=== PATIENT | male | born 1965 | race Caucasian/White ===

== ENCOUNTER 2019-06-11 08:51 | Outpatient (RCR) | payer BC, MEDICARE, SELFPAY | END 2019-06-18 23:59 | disposition home or self-care (01) | LOC: SPT 08:51 | PROVIDERS: Family Provider Family Medicine; PCP Family Medicine; Referring Provider Physician Assistant Surgical; Visit Provider Physician Assistant Surgical | DX: M75.121 Complete rotator cuff tear or rupture of right shoulder, not specified as traumatic (principal) | CPT/HCPCS: 97110; 97162 ==

== ENCOUNTER 2019-06-19 06:00 | Outpatient (RCR) | payer BC, MEDICARE, SELFPAY | END 2019-07-17 23:59 | disposition home or self-care (01) | LOC: SPT 06:00 | PROVIDERS: Family Provider Family Medicine; PCP Family Medicine; Referring Provider Physician Assistant Surgical; Visit Provider Physician Assistant Surgical | DX: M25.511 Pain in right shoulder (principal); M25.611 Stiffness of right shoulder, not elsewhere classified; R53.1 Weakness; M75.101 Unspecified rotator cuff tear or rupture of right shoulder, not specified as traumatic | CPT/HCPCS: 97110 ==

== ENCOUNTER 2019-07-18 06:00 | Outpatient (RCR) | payer BC, MEDICARE, SELFPAY | END 2019-08-17 23:59 | disposition home or self-care (01) | LOC: SPT 06:00 | PROVIDERS: Family Provider Family Medicine; PCP Family Medicine; Referring Provider Physician Assistant Surgical; Visit Provider Physician Assistant Surgical | DX: M75.101 Unspecified rotator cuff tear or rupture of right shoulder, not specified as traumatic (principal) | CPT/HCPCS: 97110 ==

== ENCOUNTER 2019-08-18 06:00 | Outpatient (RCR) | payer BC, MEDICARE, SELFPAY | END 2019-09-16 23:59 | disposition home or self-care (01) | LOC: SPT 06:00 | PROVIDERS: Family Provider Family Medicine; PCP Family Medicine; Referring Provider Physician Assistant Surgical; Visit Provider Physician Assistant Surgical | DX: M75.121 Complete rotator cuff tear or rupture of right shoulder, not specified as traumatic (principal) | CPT/HCPCS: 97110 ==

== ENCOUNTER 2020-01-03 08:35 | Outpatient (CLI) | payer BC, MEDICARE, SELFPAY ==
--- NOTE | 2020-01-03 08:41 | US_ITS ---
WS: [id number] RIGHT UPPER QUADRANT ULTRASOUND HISTORY: ABDOMINAL PAIN COMPARISON: 11/28/2009 Liver: 18.6 cm in length. Moderately enlarged liver. Diffuse attenuation throughout the liver and the surface of the liver is irregular. No mass or bile duct dilatation. Gallbladder: Normally distended gallbladder with no stones or wall thickening. CBD: 0.3 cm Pancreas: Normal size and echogenicity. Right kidney: 11.7 cm in length. Normal echogenicity with no mass or hydronephrosis. Aorta and IVC: Unremarkable. No ascites. US/US abdomen limited [id number] IMPRESSION: 1. Normal gallbladder. 2. Moderate hepatomegaly with hepatic steatosis. Correlate for possible cirrho sis.
== END 2020-01-03 08:36 | disposition home or self-care (01) ==
LOC: US 08:36
PROVIDERS: Family Provider Family Medicine; PCP Family Medicine; Visit Provider Family Medicine
DX: R10.9 Unspecified abdominal pain (principal); R16.0 Hepatomegaly, not elsewhere classified; K76.0 Fatty (change of) liver, not elsewhere classified
CPT/HCPCS: 76705

== ENCOUNTER 2020-07-19 07:55 | Outpatient (CLI) | payer BC, MEDICARE, SELFPAY ==
--- NOTE | 2020-07-19 08:08 | XR_ITS ---
WS: [id number] CHEST 2 VIEWS HISTORY: COUGH COMPARISON: 01/21/2012 Lungs: Moderate pulmonary hyperinflation. Diffuse interstitial thickening bilaterally. Progression si nce 2012. No dense areas of consolidation or pneumonia. Cardiac size: Normal. Mediastinum/Aorta: Mild atherosclerosis aorta. Bones: Prior rotator cuff repair on the LEFT. XR/XR chest 2V* [id number] IMPRESSION: 1. Diffuse interstitial thickening with progression since 01/21/2012. Differenti al includes diffuse pneumonitis and progression of interstitial pulmonary fibro sis. 2. No focal consolidation or pneumonia.
== END 2020-07-19 07:56 | disposition home or self-care (01) ==
PROVIDERS: PCP Family Medicine; Visit Provider Family Medicine
DX: R05 Cough (principal)
CPT/HCPCS: 71046

== ENCOUNTER → 2020-08-30 08:26 | Outpatient (BNVA) | payer BC, MEDICARE, SELFPAY | PROVIDERS: PCP Family Medicine; Referring Provider Nurse Practitioner Family; Visit Provider Podiatrist Foot & Ankle Surgery | DX: M25.572 Pain in left ankle and joints of left foot (principal) | CPT/HCPCS: 73630 ==

== ENCOUNTER → 2020-10-19 08:57 | Outpatient (BNVA) | payer BC, MEDICARE, SELFPAY | PROVIDERS: PCP Family Medicine; Visit Provider Podiatrist Foot & Ankle Surgery | DX: M10.9 Gout, unspecified (principal) | CPT/HCPCS: 73630 ==

== ENCOUNTER 2021-01-25 14:10 | Outpatient (CLI) | payer BC, MEDICARE, SELFPAY | END 2021-01-25 14:11 | disposition home or self-care (01) | LOC: SPT 14:11 | PROVIDERS: PCP Family Medicine; Visit Provider Podiatrist Foot & Ankle Surgery | DX: Z46.89 Encounter for fitting and adjustment of other specified devices (principal); M72.2 Plantar fascial fibromatosis | CPT/HCPCS: 97760; L3030 ==

== ENCOUNTER 2021-09-18 14:02 | Outpatient (CLI) | payer BC, MEDICARE, SELFPAY | END 2021-09-18 14:03 | disposition home or self-care (01) | LOC: SPT 14:03 | PROVIDERS: PCP Family Medicine; Visit Provider Podiatrist Foot & Ankle Surgery | DX: Z46.89 Encounter for fitting and adjustment of other specified devices (principal); M72.2 Plantar fascial fibromatosis | CPT/HCPCS: 20550; 97760; L4397 ==

== ENCOUNTER 2021-11-27 08:23 | Outpatient (CLI) | payer BC, MEDICARE, SELFPAY ==
--- NOTE | 2021-11-27 08:41 | XR_ITS ---
WS: [id number] Right foot, 3 views, 11/27/2021 Clinical Data: R FOOT PAIN Comparison: None. Findings: No fractures or dislocations are seen. No bone destruction or erosion is noted. The joint spaces and soft tissues are normal. XR/XR foot RT min 3V* [id number] Impression: Negative right foot.
--- NOTE | 2021-11-27 08:41 | XR_ITS ---
WS: [id number] Lumbar spine, AP view, L5-S1 view, lateral view, both obliques, 11/27/2021 Clinical Data: LOW BACK PAIN Comparison: None. Findings: No compression fractures or subluxation is seen. No disc space narrowing is seen. The transverse proc esses and SI joints are normal. The oblique images show no spondylolysis. There is minimal anterior osteoarthritis L3-L5. There is ca lcification in the wall of the abdominal aorta but no aneurysm. XR/XR lumbar spine min 4V [id number] Impression: 1. Minimal osteoarthritis L3-L5. 2. Negative oblique images.
== END 2021-11-27 08:24 | disposition home or self-care (01) ==
PROVIDERS: PCP Family Medicine; Visit Provider Nurse Practitioner Family
DX: M54.50 Low back pain, unspecified (principal); M79.671 Pain in right foot; M47.816 Spondylosis without myelopathy or radiculopathy, lumbar region
CPT/HCPCS: 72110; 73630

== ENCOUNTER → 2022-02-15 07:49 | Outpatient (BNVA) | payer MEDICARE, SELFPAY | PROVIDERS: PCP Family Medicine; Visit Provider Family Medicine | DX: R53.83 Other fatigue (principal); I10 Essential (primary) hypertension; E78.5 Hyperlipidemia, unspecified; M10.9 Gout, unspecified | CPT/HCPCS: 80053; 80061; 84443; 84550; 85025 ==

== ENCOUNTER 2022-02-26 11:08 | Emergency (ER) | payer MEDICARE, SELFPAY ==
[2022-02-26 11:14] VITALS: BP 151/98; PULSE 74; RESP 18; TEMP 36.5; O2SAT 95; BMI 33.6
--- NOTE | 2022-02-26 11:20 | XRR_ITS ---
PROCEDURE INFORMATION: Exam: XR Right Hand Exam date and time: 02/26/2022 11:30 AM Age: 56 years old Clinical indication: Injury or trauma; Other: Jowl Trimmer against finger; Injury details: PT states that the lens grinder and polisher slipped. Laceration on the RT 2nd digit (index finger) posteriorly between pip and mcp joint. PT states that there is no pain and that the finger is numb; Additional info: Right index finger injury TECHNIQUE: Imaging protocol: Radiologic exam of the Right hand. Views: 3 or more views. COMPARISON: No relevant prior studies available. FINDINGS: Bones/joints: Mild distal interphalangeal arthritic changes are noted. No fracture. Soft tissues: Normal. XR/XR hand RT min 3V* [id number] IMPRESSION: No acute findings.
--- NOTE | 2022-02-26 11:27 | ED_ITS ---
HPI - Wound/Laceration General: Chief Complaint: Wound/Laceration Stated Complaint: Right hand, index finger lac Time Seen by Provider: 02/26/22 11:23 History of Present Illness: Patient is a 56-year-old male comes to the ED with laceration to right index finger. Injury occurred just prior to arrival. 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 It caused a laceration over the proximal and dorsal aspect of index finger. Bleeding was controlled with a rag. He is not up-to-date with his tetanus. He endorses having minimal pain and has full range of motion in finger. Associated symptoms: Denies chills, fever(s), nausea or vomiting Review of Systems Const: Denies: fever(s), chills or fatigue Eyes: Denies: change in vision or eye discomfort ENMT: Denies: throat pain, odynophagia, nasal discharge or nasal congestion Card: Denies: chest pain, palpitations, edema, swelling of feet/ankles, dyspnea on exertion or orthopnea Resp: Denies: dyspnea, productive cough or non-productive cough GI: Denies: abdominal pain, nausea, vomiting, diarrhea, constipation or hematochezia : Denies: flank pain, difficulty urinating, dysuria or hematuria Musc: Denies: neck pain, back pain or extremity swelling Skin/Breast: Reports: new lesions (Laceration index finger); Denies: rash Neuro: Denies: headache(s), numbness in extremities or weakness in extremities [facility] ED PFSH: Medical History Fatigue Gout Hyperlipidemia Social History Smoking and tobacco status: former smoker Physical Exam Const: COMMON NORMALS: no acute distress, patient oriented x3, healthy appearing and alert GENERAL APPEARANCE: cooperative and comfortable HENMT: COMMON NORMALS: normocephalic HEAD & SCALP: normocephalic MOUTH: Normal oral and palatal mucosa present THROAT: posterior oropharynx normal and uvula midline Neck/C-Spine: COMMON NORMALS: supple GENERAL: Yes normal visual inspection Resp: COMMON NORMALS: normal respiratory effort, No retractions, No use of accessory muscles and clear to auscultation bilaterally AUSCULTATION: clear to auscultation bilaterally Cardio: COMMON NORMALS: regular rate, regular rhythm, S1 normal heart sound present, S2 normal heart sound present, No gallops present (Cardio), No clicks present (Cardio), No murmurs present (Cardio) and Peripheral pulses 2+ throughout RATE: regular rate RHYTHM: regular rhythm HEART SOUNDS: S1 normal heart sound present and S2 normal heart sound present PERIPHERAL PULSES: Peripheral pulses 2+ throughout GI: COMMON NORMALS: Normal to inspection, nondistended, normoactive bowel raina nds present, Soft to palpation, non-tender and no masses PALPATION: Yes Soft to palpation : COMMON NORMALS: Yes no CVA tenderness BLADDER/KIDNEY EXAM: Yes no CVA tenderness Back/Pelvis: COMMON NORMALS: no CVA tenderness Extremity: NARRATIVE EXTREMITY EXAM: Right hand?index finger?proximal dorsal aspect of finger has a 2 cm linear superficial laceration present. No active bleeding seen. Full range of motion in finger and no concern for any tendon laceration noted. No nailbed or nail injury seen. Neuro: COMMON NORMALS: patient oriented x3 SENSORIUM/ORIENTATION: Yes alert GAIT: Yes Normal gait present Skin: GENERAL SKIN EXAM: dry skin Procedures Laceration Laceration 1: Site: hand (Right hand 2nd digit) Size (cm): 2 Description: linear and clean Depth: simple, single layer Local Anesthetic: lidocaine 2% Amount of anesthesia used (mL): 3 Pre-repair: irrigated extensively (With normal saline and beta iodine. Skin was cleaned with CHG swab.) Skin layer closed with: nylon Size (cm): 4-0 Number of sutures: 5 Technique: simple, interrupted Course Vital Signs: Vital signs: Vital Signs Temperature 97.7 F 02/26/22 11:14 Pulse Rate 74 02/26/22 11:14 Respiratory Rate 18 02/26/22 11:14 Blood Pressure 151/98 02/26/22 11:14 Pulse Oximetry 95 02/26/22 11:14 Oxygen Delivery Me thod 02/26/22 11:14 MDM - Wound/Laceration Medical Decision Making Patient is a 56-year-old male comes to the ED with a laceration to right hand index finger. Patient appears nontoxic in no acute distress or pain. Laceration is linear and approximately 2 cm in length. Superficial with no active bleeding. No nailbed or nail injury noted. He has full range of motion in finger and no concern for any tendon laceration. X-ray of right hand showed no acute findings. Laceration was irrigated extensively normal saline and beta iodine wash the skin was cleaned with CHG swab. Lidocaine 2% was used as local and 5 sutures were placed to close laceration. See procedure note for details. He was given an updated tetanus here in the ED. He was discharged home with prophylactic antibiotic prescription. Told to follow-up in the next 7 to 10 days to have sutures removed. He was instructed on how to care for laceration site. Patient understood and agreed with plan. Lab Data Radiology Impressions Hand X-Ray 02/26/22 11:20 IMPRESSION: No acute findings. Discharge Plan Discharge Patient Disposition: Home Clinical Impression: Finger laceration Qualifiers: Encounter type: initial encounter Finger: index finger Damage to nail status: without damage Foreign body presence: without foreign body Laterality: right Qualified Code(s): S61.210A - Laceration without foreign body of right index finger without damage to nail, initial encounter Condition: Stable Prescriptions: New cephalexin 500 mg capsule 500 mg PO Q6H 4 Days Qty: 16 0RF No Action lovastatin 20 mg tablet 20 mg PO BID (DME) Custom orthotics See Rx Instructions .Route .MEDSUPPLY Qty: 1 0RF Rx Instructions: As directed triamcinolone acetonide 0.1 % cream 1 applic topical DAILY 14 Days Qty: 15 2RF hydrocodone-acetaminophen 10-325 mg tablet 1 tab PO BID PRN (DME) Custom Molded Orthotics See Rx Instructions .Route .MEDSUPPLY Qty: 1 0RF Rx Instructions: As directed (DME) sport carbon fibert orthotic See Rx Instructions .Route .MEDSUPPLY Qty: 1 0RF Rx Instructions: As directed (DME) night splint See Rx Instructions .Route .MEDSUPPLY Qty: 1 0RF Rx Instructions: As directed trazodone 50 mg tablet 50 mg PO DAILY tizanidine 2 mg capsule 2 mg PO ONCE PRN doxycycline hyclate 100 mg capsule 100 mg PO BID 7 Days Qty: 14 0RF prednisone 20 mg tablet 20 mg PO DAILY Qty: 5 0RF allopurinol 100 mg tablet 100 mg PO DAILY Qty: 30 11RF omeprazole 40 mg capsule,delayed release(DR/EC) 40 mg PO DAILY Qty: 90 1RF Discharge Orders: Discharge ED (Routine); Ordered 02/26/22 Ordered By: Osvaldo Cunha Referrals: Spencer Devlin, [Primary Care Provider] - Discharge Diet: Regular Discharge Activity: Limit activity as instructed Patient Instructions: Finger Laceration (ED) Activity Restrictions/Additional Instructions: Take full course of antibiotics as prescribed. Keep laceration site clean and dry. No submerging finger in any water until sutures removed. Clean daily with soap and water and then apply thin layer of triple antibiotic ointment on it and cover with bandage. Watch for signs of infection such as redness, warmth, increased tenderness and puslike drainage. If you see the signs of infection return to the ED, urgent care or PCP for reevaluation. call your PCP to schedule a follow-up appointment for reevaluation and suture removal in about 7- 10 days. Continue taking all home meds. Follow discharge plans as discussed. You can return to the ED if symptoms worsen. Coding Level of Care Code ED Major General for Jack Fwvishal Exam Comprehensive
[2022-02-26] MEDS: tetanus-dipt-pertussis 0.5 mL SDV IM (11:33)
== END 2022-02-26 12:07 | disposition home or self-care (01) ==
PROVIDERS: Emergency Provider Physician Assistant; PCP Family Medicine
DX: S61.210A Laceration without foreign body of right index finger without damage to nail, initial encounter (principal); E78.5 Hyperlipidemia, unspecified; Z87.891 Personal history of nicotine dependence; W29.8XXA Contact with other powered hand tools and household machinery, initial encounter; Z23 Encounter for immunization
CPT/HCPCS: 12001; 73130; 90471; 90715; 99283

== ENCOUNTER 2022-03-19 07:05 | Outpatient (CLI) | payer MEDICARE, SELFPAY | END 2022-03-19 07:06 | disposition home or self-care (01) | LOC: RT 07:05 | PROVIDERS: PCP Family Medicine; Visit Provider Nurse Practitioner Family | DX: J42 Unspecified chronic bronchitis (principal) | CPT/HCPCS: 94060; 94726; 94729 ==

== ENCOUNTER 2022-04-09 08:53 | Emergency (ER) | payer MEDICARE, SELFPAY ==
[2022-04-09 09:00] VITALS: BP 173/86; PULSE 69; RESP 16; TEMP 36.6; O2SAT 96
--- NOTE | 2022-04-09 10:07 | ED_ITS ---
HPI - Wound/Laceration General: Chief Complaint: Wound/Laceration Stated Complaint: Need Stiches Time Seen by Provider: 04/09/22 08:59 History of Present Illness: Patient is in today for a laceration to his left palm. He reports that he cut it on a piece of vinyl today. He reports he is up-to-date on his tetanus vaccination. Associated symptoms: Denies chills or fever(s) Review of Systems Const: Denies: fever(s) or chills Card: Denies: chest pain or palpitations Resp: Denies: dyspnea Skin/Breast: Reports: other (Laceration left palm) REPLACED BY [facility] ED PFSH: Medical History Fatigue Gout Hyperlipidemia Social History Smoking and tobacco status: former smoker Physical Exam Const: COMMON NORMALS: no acute distress, patient oriented x3 and alert Resp: COMMON NORMALS: normal respiratory effort Extremity: EXTREMITY IMAGE (BACK): 1. 6 cm laceration. Clean margins approximates well. Superficial. No involvement of deeper structures. Full range of motion of hand. CSM within normal limits Neuro: COMMON NORMALS: patient oriented x3 SENSORIUM/ORIENTATION: Yes alert Procedures Laceration Left palm: Site: upper extremity (Left palm) Side (If applicable): left Size (cm): 6 Description: linear Depth: simple, single layer Local Anesthetic: lidocaine 1% Amount of anesthesia used (mL): 3 Pre-repair: wound explored, irrigated extensively and deep structures intact Skin layer closed with: other (4-0 Ethilon) Size (cm): 4-0 Number of sutures: 6 Technique: simple, interrupted Course Vital Signs: Vital signs: Vital Signs Temperature 97.9 F 04/09/22 09:00 Pulse Rate 69 04/09/22 09:00 Respiratory Rate 16 04/09/22 09:00 Blood Pressure 173/86 04/09/22 09:00 Pulse Oximetry 96 04/09/22 09:00 MDM - Wound/Laceration Medical Decision Making Patient is in for laceration to left palm. Full range of motion to hand CSM within normal limits. No apparent involvement of deeper structures including muscle or tendon. Suture repair is done after wound was cleaned and irrigated. Local anesthetic with 1% lidocaine utilized. Patient tolerated procedure well. Advised of aftercare. Placed on prophylactic antibiotic. Follow-up in 5 to 7 days for suture removal. Return to ER as needed for any new or worsening symptoms. Discharge Plan Discharge Patient Disposition: Home Clinical Impression: Laceration Condition: Stable Prescriptions: New cephalexin 500 mg capsule 500 mg PO BID 7 Days Qty: 14 0RF No Action (DME) Custom orthotics See Rx Instructions .Route .MEDSUPPLY Qty: 1 0RF Rx Instructions: As directed triamcinolone acetonide 0.1 % cream 1 applic topical DAILY 14 Days Qty: 15 2RF hydrocodone-acetaminophen 10-325 mg tablet 1 tab PO BID PRN (DME) Custom Molded Orthotics See Rx Instructions .Route .MEDSUPPLY Qty: 1 0RF Rx Instructions: As directed (DME) sport carbon fibert orthotic See Rx Instructions .Route .MEDSUPPLY Qty: 1 0RF Rx Instructions: As directed (DME) night splint See Rx Instructions .Route .MEDSUPPLY Qty: 1 0RF Rx Instructions: As directed trazodone 50 mg tablet 50 mg PO DAILY tizanidine 2 mg capsule 2 mg PO ONCE PRN doxycycline hyclate 100 mg capsule 100 mg PO BID 7 Days Qty: 14 0RF prednisone 20 mg tablet 20 mg PO DAILY Qty: 5 0RF allopurinol 100 mg tablet 100 mg PO DAILY Qty: 30 11RF omeprazole 40 mg capsule,delayed release(DR/EC) 40 mg PO DAILY Qty: 90 1RF lovastatin 20 mg tablet 20 mg PO BID Qty: 60 0RF chlorthalidone 25 mg tablet 25 mg PO DAILY Qty: 90 0RF varenicline [Chantix Starting Month Box] 0.5 mg (11)- 1 mg (42) tablets,dose pack See Rx Instructions PO BID 42 Days Qty: 53 0RF Rx Instructions: 1mg PO twice daily Discharge Orders: Discharge ED (Routine); Ordered 04/09/22 Ordered By: Vale May Referrals: Spencer Devlin DO [Primary Care Provider] - Discharge Diet: Usual diet Discharge Activity: Resume usual activity Patient Instructions: Care For Your Stitches (ED) Activity Restrictions/Additional Instructions: Take antibiotic as directed. Keep the wound clean and dry. Monitor closely for signs of infection. Sutures should be removed in 5 to 7 days. Follow-up with primary care or you can return to ER to have this done. 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
--- NOTE | 2022-04-09 10:32 | PC.NURSE ---
hand was cleaned and wrapped in gauze and coban
[2022-04-09 10:33] VITALS: BP 132/82; PULSE 78; RESP 16; O2SAT 92
== END 2022-04-09 10:38 | disposition home or self-care (01) ==
PROVIDERS: Emergency Provider Nurse Practitioner Family; PCP Family Medicine
DX: S61.412A Laceration without foreign body of left hand, initial encounter (principal); E78.5 Hyperlipidemia, unspecified; Z87.891 Personal history of nicotine dependence; W26.8XXA Contact with other sharp object(s), not elsewhere classified, initial encounter
CPT/HCPCS: 12002; 99282

== ENCOUNTER → 2022-05-02 13:51 | Outpatient (BNVA) | payer MEDICARE, SELFPAY | PROVIDERS: PCP Family Medicine; Visit Provider Internal Medicine Pulmonary Disease | DX: J42 Unspecified chronic bronchitis (principal); J98.4 Other disorders of lung; R40.0 Somnolence; R06.09 Other forms of dyspnea; M25.641 Stiffness of right hand, not elsewhere classified; M25.642 Stiffness of left hand, not elsewhere classified; Z71.6 Tobacco abuse counseling; Z87.891 Personal history of nicotine dependence | CPT/HCPCS: 99204 ==

== ENCOUNTER 2022-05-08 13:00 | Outpatient (CLI) | payer MEDICARE, SELFPAY | END 2022-05-08 13:01 | disposition home or self-care (01) | LOC: SLEEP 05-09 08:24 | PROVIDERS: PCP Family Medicine; Visit Provider Nurse Practitioner Family | DX: R53.83 Other fatigue (principal); R40.0 Somnolence; G47.33 Obstructive sleep apnea (adult) (pediatric) | CPT/HCPCS: G0399 ==

== ENCOUNTER 2022-05-10 09:59 | Outpatient (CLI) | payer MEDICARE, SELFPAY ==
--- NOTE | 2022-05-10 10:30 | CT_ITS ---
WS: [id number] CT CHEST CT-HIGH RESOLUTION, NONCONTRAST. HISTORY: Interstitial lung disease. Technique: High-resolution chest CT is performed in inspiration, expiration, supine and prone positio abiel. All CT scans at [facility] use at least one of these dose optimization techniques: automated exposure control; mA and/or kV adjustment per patient size (includes targeted exams where dose is mat ched to clinical indication); or iterative reconstruction. DLP: 2912.36 mGy.cm COMPARISON: None. Findings: Bilateral, predominantly basilar and peripheral reticular opacifications. There is honeycom yuri in the upper and lower lung chacko but predominantly in the lower lung chacko and extending genevieve g the pleural surfaces of the upper lobes. There is traction bronchiectasis predominantly also within the lower lobes. No discrete solid mass. No pleural effusion. Honeycombing does not improve with pro ne positioning. During expiration there is mild volume loss. No significant mosaic attenuation to suggest focal areas of air trapping. Heart size is normal. No adenopathy. Mild atherosclerosis aorta. Normal size pulmonary artery. Small hiatal hernia. No adrenal mass. Increase in the thoracic kyphosis. CT/CT chest wo con [id number] Impression: 1. Moderate changes of UIP. 2. No cardiomegaly. 3. No pneumonia or mass.
== END 2022-05-10 10:00 | disposition home or self-care (01) ==
LOC: RAD 10:02
PROVIDERS: PCP Family Medicine; Visit Provider Internal Medicine Pulmonary Disease
DX: J98.4 Other disorders of lung (principal)
CPT/HCPCS: 71250

== ENCOUNTER 2022-05-13 13:58 | Outpatient (CLI) | payer MEDICARE, SELFPAY ==
--- NOTE | 2022-05-13 14:30 | USCV_ITS ---
Alfredo Reyes Age: 56 Gender: M : 1965 Exam Date: 05/13/2022 14:22 Ordering Phys: Peterson Nagy MD Technologist: Fareed Riley Exam Location: [facility] [place] Indication: lung issues sob BP: / HR: 66 Rhythm: Sinus Technical Quality: MEASUREMENTS (Male / Female) Normal Values 2D ECHO LV Diastolic Diameter PLAX 4.8 cm 4.2 - 5.9 / 3.9 - 5.3 cm LV Systolic Diameter PLAX 3.0 cm IVS Diastolic Thickness 1.4 cm 0.6 - 1.0 / 0.6 - 0.9 cm IVS Systolic Thickness 1.5 cm LVPW Diastolic Thickness 1.3 cm 0.6 - 1.0 / 0.6 - 0.9 cm LVPW Systolic Thickness 1.6 cm LVOT Diameter 3.6 cm LV Ejection Fraction 2D Teich 67.0 % LV Ejection Fraction MOD 2C 59.3 % LV Ejection Fraction 2C AL 60.5 % LA Diameter 4.0 cm Aorta at Sinotubular Diameter 3.6 cm IVC Diameter 2.0 cm M-MODE Aortic Annulus Diameter 4.2 cm LA Ao Ratio MM 0.9 DOPPLER AV Peak Velocity 137.0 cm/s LVOT Peak Velocity 93.0 cm/s AV Area Cont Eq vti 7.1 cm squared AV Area Cont Eq pk 7.0 cm squared MV Area PHT 5.0 cm squared Mitral E to A Ratio 1.0 MV E' Velocity 42.0 cm/s Mitral E to MV E' Ratio 6.9 Mitral E to LV E' Lateral Ratio 5.8 Mitral E to LV E' Septal Ratio 8.6 TR Peak Velocity 143.3 cm/s TR Peak Gradient 8.2 mmHg TV Peak E Velocity 92.0 cm/s Right Atrial Pressure 3.0 mmHg Pulmonary Artery Systolic Pressu 11.2 mmHg RV Acceleration Time 0.1 s FINDINGS Left Ventricle Left ventricle is normal in size. LV systolic function normal with EF of 55 to 60%. No regional wall motion abnormalities are seen. Grade 1 disatolic dysfunction Right Ventricle Normal in size and function Right Atrium Normal in size Left Atrium Normal in size Mitral Valve Grossly normal Aortic Valve Grossly normal. No significant stenosis or regurgitation. Tricuspid Valve Trace tricuspid regurgitation. Pulmonary artery systolic pressure is normal Pulmonic Valve Not well visualized Pericardium Not well visualized Aorta Mildly dilated ascending aorta IVC Appears to be normal CONCLUSIONS Technically limited quality echocardiogram because of poor ultrasonic windows. LV systolic function is normal with EF of 55 to 60%. Grade 1 diastolic dysfunction. Mild tricuspid regurgitation. Mildly dilated ascending aorta. No comparison studies are available Arron Ulrich MD (Electronically Signed) Final Date: 19 May 2022 16:32 S
== END 2022-05-13 13:59 | disposition home or self-care (01) ==
LOC: RAD 14:00
PROVIDERS: PCP Family Medicine; Visit Provider Internal Medicine Pulmonary Disease
DX: R22.43 Localized swelling, mass and lump, lower limb, bilateral (principal); R06.02 Shortness of breath; I07.1 Rheumatic tricuspid insufficiency
CPT/HCPCS: 93306

== ENCOUNTER 2022-05-14 12:02 | Outpatient (CLI) | payer MEDICARE, SELFPAY ==
[2022-05-14 13:02] LABS: C Reactive Protein 10.6 mg/L (0.0-4.9)
[2022-05-14 13:09] LABS: Erythrocyte Sedimentation Rate 7 mm/hr (0-10)
[2022-05-15 10:59] LABS: Anti-Double Strand DNA AB 3 IU/mL; Jo-1 Antibody <1.0 NEG AI (<1.0 NEG); SM/RNP Antibodies <1.0 NEG AI (<1.0 NEG); SS-B/LA IGG <1.0 NEG AI (<1.0 NEG); Scleroderma Ab(Scl-70) Ab <1.0 NEG AI (<1.0 NEG); Ss-A/Ro Igg <1.0 NEG AI (<1.0 NEG)
[2022-05-21 20:44] LABS: Myositis EJ AB <11 SI (<11); Myositis JO-1 AB <11 SI (<11); Myositis MDA-5 AB <11 SI (<11); Myositis MI-2 Alpha AB <11 SI (<11); Myositis MI-2 Beta AB <11 SI (<11); Myositis NXP-2AB <11 SI (<11); Myositis OJ AB <11 SI (<11); Myositis PL-12 AB <11 SI (<11); Myositis PL-7 AB <11 SI (<11); Myositis SRP AB <11 SI (<11); Myositis TIF-1y AB <11 SI (<11)
== END 2022-05-14 12:03 | disposition home or self-care (01) ==
LOC: LAB 12:04
PROVIDERS: PCP Family Medicine; Visit Provider Internal Medicine Pulmonary Disease
DX: J84.9 Interstitial pulmonary disease, unspecified (principal); J98.4 Other disorders of lung
CPT/HCPCS: 36415; 84182; 85651; 86140; 86225; 86235

== ENCOUNTER 2022-05-29 07:09 | Outpatient (CLI) | payer MEDICARE, SELFPAY ==
--- NOTE | 2022-05-29 07:38 | XR_ITS ---
WS: [id number] XR chest 2V* [id number] REASON FOR EXAM: Rule out pneumonia FINDINGS: Moderate tortuosity of the thoracic aorta with normal heart size. Calcified granulomatous disease in both hemithoraces. Extensive coarse reticular interstitial density in both lungs predominating in the lung periphery and subpleural areas. Multiple areas of increased lucency more centrally in the lungs. The chest demonstrates no significant interval change compared to 07/19/2020. XR/XR chest 2V* [id number] IMPRESSION: Severe chronic interstitial lung disease with multiple cystic areas in both musa gs. No acute abnormality is identified.
== END 2022-05-29 07:10 | disposition home or self-care (01) ==
PROVIDERS: PCP Family Medicine; Visit Provider Internal Medicine Pulmonary Disease
DX: J20.9 Acute bronchitis, unspecified (principal); J84.9 Interstitial pulmonary disease, unspecified
CPT/HCPCS: 71046; 94618

== ENCOUNTER 2022-07-11 10:39 | Outpatient (CLI) | payer MEDICARE, SELFPAY ==
--- NOTE | 2022-07-11 10:49 | XR_ITS ---
WS: [id number] Exam: XR chest 2V* [id number] Date/Time of Exam: 07/11/2022 11:05 AM Reason For Exam: POST PLEURAL BIOPSIES - RULE OUT PNEUMOTHORAX Comparison 05/29/2022. Very tiny right upper lobe pneumothorax noted estimated at 5% or less. Subcutaneous emphysema along t he right lower rib cage. Extensive chronic interstitial changes of fibrosis and honeycombing. No cons olidating infiltrates are seen. Heart size top limits normal. Prominence of the mediastinum unchanged . Bony structures are intact. Wire suture superimpose the lower C-spine. Old left clavicle fracture. Exaggerated thoracic kyphosis. XR/XR chest 2V* [id number] IMPRESSION: 1. Tiny right upper lobe pneumothorax estimated at 5% or less. Subcutaneous emp hysema along the lower right rib cage. 2. Extensive the changes of interstitial fibrosis and honeycombing. No acute in filtrates are seen. 3. Widening of the mediastinum unchanged. Heart size top limits normal.
== END 2022-07-11 10:40 | disposition home or self-care (01) ==
LOC: RAD 10:44
PROVIDERS: PCP Family Medicine; Visit Provider Internal Medicine Pulmonary Disease
DX: J84.9 Interstitial pulmonary disease, unspecified (principal); J98.4 Other disorders of lung; R06.09 Other forms of dyspnea; M25.641 Stiffness of right hand, not elsewhere classified; F17.200 Nicotine dependence, unspecified, uncomplicated; Z99.81 Dependence on supplemental oxygen; J95.811 Postprocedural pneumothorax; G47.33 Obstructive sleep apnea (adult) (pediatric)
CPT/HCPCS: 71046; 99214

== ENCOUNTER 2022-08-02 09:43 | Outpatient (CLI) | payer MEDICARE, SELFPAY ==
[2022-08-02 10:32] LABS: Erythrocyte Sedimentation Rate 16 mm/hr (0-10)
[2022-08-02 10:35] LABS: Alanine Aminotransferase 23 U/L (0-41); Albumin Level 4.1 g/dL (3.5-5.2); Alkaline Phosphatase 111 U/L (40-130); Blood Urea Nitrogen 13 mg/dL (6-20); C Reactive Protein 3.7 mg/L (0.0-4.9); Calcium 9.3 mg/dL (8.5-10.5); Carbon Dioxide 29 mmol/L (22-29); Chloride 100 mmol/L (98-107); Creatine Phosphokinase 106 U/L (39-308); Globulin 3.6 g/dL (1.3-4.6); Glomerular Filtration Rate 86.7 mL/min (90-130); Glucose 94 mg/dL (65-115); Osmolality Calculated 290 mOsm/kg (285-295); Sodium 140 mmol/L (136-145); Total Bilirubin 0.2 mg/dL (0.15-1.2); Total Protein 7.7 g/dL (6.6-8.7)
[2022-08-02 10:36] LABS: Anion Gap 14.6 (5-19); Aspartate Amino Transferase 23 U/L (0-40); Potassium 3.6 mmol/L (3.5-5.1)
[2022-08-05 13:10] LABS: Aldolase 5.8 U/L (< OR = 8.1)
[2022-08-05 13:50] LABS: Cyclic Citrullinated Peptide <16 UNITS
== END 2022-08-02 09:44 | disposition home or self-care (01) ==
PROVIDERS: PCP Family Medicine; Visit Provider Internal Medicine Pulmonary Disease
DX: J84.9 Interstitial pulmonary disease, unspecified (principal); Z79.899 Other long term (current) drug therapy
CPT/HCPCS: 36415; 80053; 82085; 82550; 85651; 86140; 86200; 86431

== ENCOUNTER → 2022-08-15 08:20 | Outpatient (BNVA) | payer MEDICARE, SELFPAY | PROVIDERS: PCP Clinical Nurse Specialist Adult Health; Visit Provider Internal Medicine Pulmonary Disease | DX: J44.9 Chronic obstructive pulmonary disease, unspecified (principal); Z87.891 Personal history of nicotine dependence; R10.11 Right upper quadrant pain; G47.33 Obstructive sleep apnea (adult) (pediatric); Z99.81 Dependence on supplemental oxygen | CPT/HCPCS: 71046 ==

== ENCOUNTER → 2022-08-15 08:20 | Outpatient (BNVA) | payer MEDICARE, SELFPAY | PROVIDERS: PCP Clinical Nurse Specialist Adult Health; Visit Provider Internal Medicine Pulmonary Disease | DX: J84.112 Idiopathic pulmonary fibrosis (principal); J84.9 Interstitial pulmonary disease, unspecified; R06.09 Other forms of dyspnea; Z99.81 Dependence on supplemental oxygen; G47.33 Obstructive sleep apnea (adult) (pediatric); J44.9 Chronic obstructive pulmonary disease, unspecified; Z87.891 Personal history of nicotine dependence; R10.11 Right upper quadrant pain | CPT/HCPCS: 99214 ==

== ENCOUNTER 2022-08-17 12:26 | Emergency (ER) | payer MEDICARE, SELFPAY ==
[2022-08-17 12:32] VITALS: BP 153/93; PULSE 81; RESP 18; TEMP 36.4; O2SAT 92
--- NOTE | 2022-08-17 13:12 | W.ED.GENADLT ---
HPI - General Adult General: Chief complaint: Shortness of Breath/Dyspnea Stated complaint: swelling after lung biopsy, Sent by dr Nagy Time Seen by Provider: 08/17/22 13:12 History of Present Illness: Mr. Reyes is a 56-year-old gentleman with complex past medical history including idiopathic pulmonary fibrosis with intermittent hypoxic respiratory failure, hypertension, hyperlipidemia presenting to the emergency department for evaluation of right upper quadrant and right lower chest pain. He reports on 07/17 he underwent robot-assisted lung and chest wall biopsy in [place]. After the procedure he noted increased swelling and fullness sensation that has since increased and worsened. He reports worse symptoms lying down however constant symptoms throughout the day as well. Denies worsening respiratory status or GI symptoms. Intensity is moderate. Course has worsened. He previously saw pulmonology and a chest x-ray revealed no specific abnormality compared to prior however symptoms have worsened to the point that he presented to the emergency department. No other specific changes in health, exacerbating, or alleviating factors identified. Onset (ago): week(s) Location: chest and abdomen Severity: moderate Quality: aching and other Pain Consistency: constant Relieving factors: none Exacerbating factors: other Associated symptoms: Reports no associated symptoms Review of Systems General: Reports: 10 or more systems reviewed and unremarkable except in HPI and below PFSH ED PFSH: Medical History (Updated 08/29/22 @ 19:10 by Jarrod Westbrook NP) Chronic hypoxemic respiratory failure Fibromyalgia GERD (gastroesophageal reflux disease) Gout 01/2022 uric acid 7.7 Hyperlipidemia Idiopathic pulmonary fibrosis pft 03/2022 mild restriction MIHIR (obstructive sleep apnea) Smoker former smoker, quit 2021 2 PPD X 45 years Torn rotator cuff Surgical History H/O neck surgery H/O shoulder surgery Social History Smoking and tobacco status: former smoker Quit status (tobacco): has quit using tobacco Year quit tobacco: 2021 Former quit date comment: 2 ppd X 45 years Physical Exam Const: COMMON NORMALS: alert GENERAL APPEARANCE: cooperative and well developed HENMT: COMMON NORMALS: normocephalic and atraumatic HEAD & SCALP: normocephalic and atraumatic Eye: COMMON NORMALS: conjunctivae normal CONJUNCTIVA: Yes conjunctivae normal SCLERA: sclerae normal Neck/C-Spine: COMMON NORMALS: supple GENERAL: Yes trachea midline Resp: EFFORT & INSPECTION: Yes able to speak in complete sentences AUSCULTATION: diminished lung sounds Cardio: COMMON NORMALS: regular rate and regular rhythm RATE: regular rate RHYTHM: regular rhythm GI: COMMON NORMALS: Soft to palpation PALPATION: Yes Soft to palpation, Yes Tenderness to palpation present (GI) Details: RUQ, No Guarding due to palpation present (GI), No Rigid due to palpation and Yes Hepatomegaly present (suspected) Extremity: GENERAL: Yes normal exam except as noted and No edema Neuro: COMMON NORMALS: moves all extremities SENSORIUM/ORIENTATION: Yes alert and No Orientation impaired Psych: COMMON NORMALS: mental status grossly normal and Normal thought process present THOUGHT PROCESS: Normal thought process present Course Vital Signs: Vital signs: Vital Signs Temperature 97.5 F L 08/17/22 12:32 Pulse Rate 70 08/17/22 15:04 Respiratory Rate 14 08/17/22 15:04 Blood Pressure 134/84 08/17/22 15:04 Pulse Oximetry 94 08/17/22 15:04 Oxygen Delivery Me thod Room Air 08/17/22 15:04 MDM - General Adult Medical Decision Making 56-year-old gentleman presenting due to palpable increasing right lower chest right upper quadrant mass. Exam as above. Labs with mild leukocytosis, normal hemoglobin and platelet count. Panel with mild dehydration though patient tolerate oral intake. Prior x-ray reviewed. Ultrasound shows mildly enlarged liver without I am unsure if this is exact cause and as such CT imaging is appropriate especially in the postoperative context. There is a trace right pleural effusion and mild hepatosplenomegaly with back steatosis, incidental findings noted. Most likely likely cause of patient symptoms is hepatomegaly and abdominal wall muscle weakness. The results of ED evaluation were discussed with the patient including prescriptions and/or symptomatic cares (if applicable) including appropriate and responsible use, followup plan, and return precautions. The patient verbalized understanding and felt safe for discharge. Medical Records I reviewed the patient's medical records. Lab Data I reviewed the patient's lab results. 08/17/22 13:48 08/17/22 13:48 Radiology Impressions Liver Ultrasound 08/17/22 13:34 IMPRESSION: Mildly enlarged, fatty liver. Chest/Abdomen/Pelvis CT 08/17/22 15:01 IMPRESSION: 1. Trace right pleural effusion. 2. Additional findings, as above. IMPRESSION: 1. Mild hepatosplenomegaly and hepatic steatosis. 2. Additional findings, as above. Laboratory Results WBC 12.6 10^3/uL (4.0-10.0) H 08/17/22 13:48 RBC 5.02 10^6/uL (4.1-5.3) 08/17/22 13:48 Hgb 14.2 g/dL (11.7-16.6) 08/17/22 13:48 Hct 43.6 % (42.0-52.0) 08/17/22 13:48 MCV 86.9 fl (80-94) 08/17/22 13:48 MCH 28.3 pg (28.0-34.0) 08/17/22 13:48 MCHC 32.6 g/dL (30.0-36.0) 08/17/22 13:48 RDW 13.2 % (12.1-15.1) 08/17/22 13:48 Plt Count 275 10^3/cmm (130-400) 08/17/22 13:48 MPV 11.1 fL (7.4-10.4) H 08/17/22 13:48 Neut % (Auto) 74.0 % 08/17/22 13:48 Lymph % (Auto) 15.5 % 08/17/22 13:48 Benzie % (Auto) 7.1 % 08/17/22 13:48 Eos % (Auto) 2.5 % 08/17/22 13:48 Baso % (Auto) 0.5 % 08/17/22 13:48 Neut # (Auto) 9.34 10^3/uL (1.8-7.7) H 08/17/22 13:48 Lymph # (Auto) 2.0 10^3/uL (0.8-4.8) 08/17/22 13:48 Benzie # (Auto) 0.9 10^3/uL (0.2-0.9) 08/17/22 13:48 Eos # (Auto) 0.3 10^3/uL (0.0-0.8) 08/17/22 13:48 Baso # (Auto) 0.1 10^3/uL (0.0-0.1) 08/17/22 13:48 Nucleated RBC % (auto) 0 % 08/17/22 13:48 Nucleated RBCs # 0.0 /100WBC 08/17/22 13:48 Sodium 135 mmol/L (136-145) L 08/17/22 13:48 Potassium 3.5 mmol/L (3.5-5.1) 08/17/22 13:48 Chloride 98 mmol/L (98-107) 08/17/22 13:48 Carbon Dioxide 22 mmol/L (22-29) 08/17/22 13:48 Anion Gap 18.5 (5-19) 08/17/22 13:48 BUN 12 mg/dL (6-20) 08/17/22 13:48 Creatinine 0.9 mg/dL (0.7-1.2) 08/17/22 13:48 GFR Calculation 86.7 mL/min (90-130) L 08/17/22 13:48 Glucose 99 mg/dL (65-115) 08/17/22 13:48 Calculated Osmolality 280 mOsm/kg (285-295) L 08/17/22 13:48 Calcium 8.9 mg/dL (8.5-10.5) 08/17/22 13:48 Total Bilirubin 0.2 mg/dL (0.15-1.2) 08/17/22 13:48 AST 25 U/L (0-40) 08/17/22 13:48 ALT 24 U/L (0-41) 08/17/22 13:48 Alkaline Phosphatase 104 U/L (40-130) 08/17/22 13:48 NT-Pro-B Natriuret Pep 36 pg/mL (0-125) 08/17/22 13:48 Total Protein 7.5 g/dL (6.6-8.7) 08/17/22 13:48 Albumin 3.8 g/dL (3.5-5.2) 08/17/22 13:48 Globulin 3.7 g/dL (1.3-4.6) 08/17/22 13:48 Lipase 28 U/L (13-60) 08/17/22 13:48 Discharge Plan Discharge Patient Disposition: Home Clinical Impression: Hepatomegaly, Small pleural effusion, Post-operative state Condition: Stable Prescriptions: No Action (DME) Custom orthotics See Rx Instructions .Route .MEDSUPPLY Qty: 1 0RF Rx Instructions: As directed triamcinolone acetonide 0.1 % cream 1 applic topical DAILY 14 Days Qty: 15 2RF hydrocodone-acetaminophen 10-325 mg tablet 1 tab PO BID PRN (DME) Custom Molded Orthotics See Rx Instructions .Route .MEDSUPPLY Qty: 1 0RF Rx Instructions: As directed (DME) sport carbon fibert orthotic See Rx Instructions .Route .MEDSUPPLY Qty: 1 0RF Rx Instructions: As directed (DME) night splint See Rx Instructions .Route .MEDSUPPLY Qty: 1 0RF Rx Instructions: As directed tizanidine 2 mg capsule 2 mg PO ONCE PRN varenicline 1 mg tablet 1 mg PO BID Qty: 60 2RF omeprazole 40 mg capsule,delayed release(DR/EC) See Rx Instructions .ROUTE .COMPLEX Qty: 90 3RF Dose Instruction: TAKE 1 CAPSULE BY MOUTH ONCE A DAY Rx Instructions: TAKE 1 CAPSULE BY MOUTH ONCE A DAY albuterol sulfate 90 mcg/actuation HFA aerosol inhaler 2 puff inhalation Q6H PRN (Reason: shortness of breath or wheezing) Qty: 8.5 9RF chlorthalidone 25 mg tablet 25 mg PO DAILY Qty: 90 0RF Anoro Ellipta 62.5-25 mcg/actuation blister with device 1 inh inhalation DAILY Qty: 60 3RF trazodone 50 mg tablet 50 mg PO DAILY Qty: 90 3RF pirfenidone 267 mg tablet See Rx Instructions .ROUTE .COMPLEX Qty: 207 0RF Rx Instructions: take 1 tablet 3 times daily for 7 days then 2 tablets 3 times daily for 7 days then then 3 tablets 3 times daily thereafter lovastatin 20 mg tablet 20 mg PO BID Qty: 180 3RF Discharge Orders: Discharge ED (Routine); Ordered 08/17/22 Ordered By: Abel Gallegos Referrals: Jarrod Westbrook COMMUNICATIONS PROJECT LEAD [Primary Care Provider] - Discharge Diet: Usual diet Discharge Activity: Limit activity as instructed Activity Restrictions/Additional Instructions: Thank you for visiting the emergency department. You were seen and evaluated for abdominal discomfort and bulge. The exact cause of your symptoms is unclear. You may be seeing the enlarged liver. As discussed you do have incidental finding of small pleural effusion. Please follow-up with your primary care provider and follow all directions previously given. Return to the emergency department for anything that you are concerned about and feel needs emergency department evaluation. Coding Level of Care Code ED Legal Service Specialist for [facility]
--- NOTE | 2022-08-17 13:34 | USR_ITS ---
PROCEDURE INFORMATION: Exam: US Abdomen, Limited; Right Upper Quadrant Exam date and time: 08/17/2022 2:14 PM Age: 56 years old Clinical indication: Abdominal pain; Epigastric; Additional info: Ruq pain/fullness TECHNIQUE: Imaging protocol: Real time ultrasound of the abdomen with image documentation. Limited exam focused on the right upper quadrant. COMPARISON: US abdomen limited [id number] 01/03/2020 8:45 AM FINDINGS: Liver: Mildly enlarged. Echogenic, consistent with fatty infiltration. Gallbladder: No gallstones. No gallbladder wall thickening or pericholecystic fluid. 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 Biliary ducts: Normal. No stones. No dilation. Pancreas: Suboptimally visualized. Right kidney: No mass. No definite stones. No hydronephrosis. US/US liver [id number] IMPRESSION: Mildly enlarged, fatty liver.
[2022-08-17 13:56] VITALS: BP 159/89; PULSE 76; RESP 15; O2SAT 94
[2022-08-17 14:10] LABS: Basophils # 0.1 10^3/uL (0.0-0.1); Basophils % 0.5 %; Eosinophils # 0.3 10^3/uL (0.0-0.8); Eosinophils % 2.5 %; Hematocrit 43.6 % (42.0-52.0); Hemoglobin 14.2 g/dL (11.7-16.6); Lymphocytes % 15.5 %; Mean Corpuscular HGB Conc 32.6 g/dL (30.0-36.0); Mean Corpuscular Hemoglobin 28.3 pg (28.0-34.0); Mean Corpuscular Volume 86.9 fl (80-94); Mean Platelet Volume 11.1 fL (7.4-10.4); Monocytes # 0.9 10^3/uL (0.2-0.9); Monocytes % 7.1 %; Neutrophils # 9.34 10^3/uL (1.8-7.7); Nucleated Red Blood Cells % 0 %; Platelet Count 275 10^3/cmm (130-400); Red Blood Count 5.02 10^6/uL (4.1-5.3); Red Cell Distribution Width 13.2 % (12.1-15.1); White Blood Count 12.6 10^3/uL (4.0-10.0)
[2022-08-17 14:35] LABS: Alanine Aminotransferase 24 U/L (0-41); Albumin Level 3.8 g/dL (3.5-5.2); Alkaline Phosphatase 104 U/L (40-130); Anion Gap 18.5 (5-19); Aspartate Amino Transferase 25 U/L (0-40); Blood Urea Nitrogen 12 mg/dL (6-20); Calcium 8.9 mg/dL (8.5-10.5); Carbon Dioxide 22 mmol/L (22-29); Chloride 98 mmol/L (98-107); Globulin 3.7 g/dL (1.3-4.6); Glomerular Filtration Rate 86.7 mL/min (90-130); Glucose 99 mg/dL (65-115); Lipase 28 U/L (13-60); NT Pro B Type Natriuretic Pept 36 pg/mL (0-125); Osmolality Calculated 280 mOsm/kg (285-295); Potassium 3.5 mmol/L (3.5-5.1); Sodium 135 mmol/L (136-145); Total Bilirubin 0.2 mg/dL (0.15-1.2); Total Protein 7.5 g/dL (6.6-8.7)
--- NOTE | 2022-08-17 15:01 | CTR_ITS ---
PROCEDURE INFORMATION: Exam: CT Chest With Contrast; Diagnostic Exam date and time: 08/17/2022 3:30 PM Age: 56 years old Clinical indication: Abdominal pain; Other: Ruq/r lower chest soft tissue swelling/fullness/pain; Prior surgery; Surgery type: Lung bx 07/17/22 TECHNIQUE: Imaging protocol: Diagnostic computed tomography of the chest with contrast. Radiation optimization: All CT scans at this facility use at least one of these dose optimization techniques: automated exposure control; mA and/or kV adjustment per patient size (includes targeted exams where dose is matched to clinical indication); or iterative reconstruction. Contrast material: OMNI 350; Contrast volume: 100 ml; Contrast route: INTRAVENOUS (IV); REPORTING DATA: Count of CT and Cardiac NM exams in prior 12 months: This patient has received [address] and 0 known cardiac nuclear medicine studies in the 12 months prior to the current study. COMPARISON: CT chest con [id number] 05/10/2022 10:34 AM RADIATION DOSE METRICS: Total DLP (mGy-cm): 1706.66 FINDINGS: Lungs: Moderate fibrotic changes, similar to prior. No consolidation. Pleural spaces: Trace right pleural effusion. No pneumothorax. Heart: Unremarkable. No cardiomegaly. No pericardial effusion. Lymph nodes: Small mediastinal and hilar lymph nodes, nonspecific in appearance. No pathologically enlarged lymph nodes. Vasculature: Minimal atherosclerotic disease. No aneurysm or dissection. Diaphragm: Small hiatal hernia. Bones/joints: No acute osseous abnormality. Mild degenerative changes. Old right-sided rib fractures. Suture anchors in the humeral heads. Soft tissues: Unremarkable. PROCEDURE INFORMATION: Exam: CT Abdomen And Pelvis With Contrast Exam date and time: 08/17/2022 3:30 PM Age: 56 years old Clinical indication: Abdominal pain; Other: Ruq/r lower chest soft tissue swelling/fullness/pain; Prior surgery; Surgery type: Lung bx 07/17/22 TECHNIQUE: Imaging protocol: Computed tomography of the abdomen and pelvis with contrast. Axial, coronal and sagittal reformatted images were created and reviewed. Radiation optimization: All CT scans at this facility use at least one of these dose optimization techniques: automated exposure control; mA and/or kV adjustment per patient size (includes targeted exams where dose is matched to clinical indication); or iterative reconstruction. Contrast material: OMNI 350; Contrast volume: 100 ml; Contrast route: INTRAVENOUS (IV); REPORTING DATA: Count of CT and Cardiac NM exams in prior 12 months: This patient has received [address] and 0 known cardiac nuclear medicine studies in the 12 months prior to the current study. COMPARISON: [place] liver [id number] 08/17/2022 2:14 PM RADIATION DOSE METRICS: Total DLP (mGy-cm): 1706.66 FINDINGS: Liver: Mild hepatomegaly. Mild, diffuse hepatic steatosis. Gallbladder and bile ducts: No radiodense gallstones. No biliary ductal dilatation. Pancreas: Unremarkable. Spleen: Mild splenomegaly. Adrenal glands: Normal. No mass. Kidneys and ureters: No mass. No radiodense calculi. No hydronephrosis. Stomach and bowel: No bowel wall thickening. No obstruction. No pneumatosis. Appendix: Normal. Intraperitoneal space: No free fluid. No organized fluid collection. No free air. Vasculature: Mild atherosclerotic disease. No aneurysm or dissection. Lymph nodes: No pathologically enlarged lymph nodes. Urinary bladder: Unremarkable as visualized. Reproductive: Unremarkable. Bones/joints: No acute osseous abnormality. Mild degenerative changes. Soft tissues: Fat containing left greater than right inguinal hernias. CT/CT chest abdpel w/*[id number] IMPRESSION: 1. Trace right pleural effusion. 2. Additional findings, as above. IMPRESSION: 1. Mild hepatosplenomegaly and hepatic steatosis. 2. Additional findings, as above.
[2022-08-17 15:04] VITALS: BP 134/84; PULSE 70; RESP 14; O2SAT 94
[2022-08-17] MEDS: iohexol 350 mg/mL 500 mL Btl (per mL) IV (15:13)
== END 2022-08-17 16:37 | disposition home or self-care (01) ==
PROVIDERS: Emergency Provider Emergency Medicine; PCP Clinical Nurse Specialist Adult Health
DX: J90 Pleural effusion, not elsewhere classified (principal); R16.0 Hepatomegaly, not elsewhere classified; Z98.890 Other specified postprocedural states; I10 Essential (primary) hypertension; E78.5 Hyperlipidemia, unspecified; Z87.891 Personal history of nicotine dependence
CPT/HCPCS: 36415; 71260; 74177; 76705; 80053; 83690; 83880; 85025; 99285; Q9967

== ENCOUNTER → 2022-09-10 15:15 | Outpatient (BNVA) | payer MEDICARE, SELFPAY | PROVIDERS: PCP Clinical Nurse Specialist Adult Health; Visit Provider Internal Medicine Pulmonary Disease | DX: R07.81 Pleurodynia (principal); J84.112 Idiopathic pulmonary fibrosis; J44.9 Chronic obstructive pulmonary disease, unspecified; Z99.81 Dependence on supplemental oxygen; G47.33 Obstructive sleep apnea (adult) (pediatric); Z87.891 Personal history of nicotine dependence | CPT/HCPCS: 71046; 99214 ==

== ENCOUNTER → 2022-09-23 09:15 | Outpatient (BNVA) | payer MEDICARE, SELFPAY | PROVIDERS: PCP Clinical Nurse Specialist Adult Health; Visit Provider Podiatrist Foot & Ankle Surgery | DX: L60.3 Nail dystrophy (principal) | CPT/HCPCS: 99213 ==

== ENCOUNTER 2022-09-24 08:45 | Outpatient (RCR) | payer MEDICARE, SELFPAY | END 2022-10-16 23:59 | disposition home or self-care (01) | LOC: PULRHB 08:45 | PROVIDERS: PCP Clinical Nurse Specialist Adult Health; Visit Provider Internal Medicine Pulmonary Disease | DX: J84.9 Interstitial pulmonary disease, unspecified (principal); R22.43 Localized swelling, mass and lump, lower limb, bilateral | CPT/HCPCS: 94625; G0237; G0238 ==

== ENCOUNTER → 2022-10-03 07:53 | Outpatient (BNVA) | payer MEDICARE, SELFPAY | PROVIDERS: PCP Clinical Nurse Specialist Adult Health; Visit Provider Podiatrist Foot & Ankle Surgery | DX: L60.3 Nail dystrophy (principal) | CPT/HCPCS: 11750; A6219; A6446 ==

== ENCOUNTER 2022-10-17 06:00 | Outpatient (RCR) | payer MEDICARE, SELFPAY | END 2022-11-15 23:59 | disposition home or self-care (01) | LOC: PULRHB 06:00 | PROVIDERS: PCP Clinical Nurse Specialist Adult Health; Visit Provider Internal Medicine Pulmonary Disease | DX: J84.9 Interstitial pulmonary disease, unspecified (principal); R22.43 Localized swelling, mass and lump, lower limb, bilateral | CPT/HCPCS: G0237; G0238; G0239 ==

== ENCOUNTER → 2022-11-07 07:46 | Outpatient (BNVA) | payer MEDICARE, SELFPAY | PROVIDERS: PCP Clinical Nurse Specialist Adult Health; Visit Provider Podiatrist Foot & Ankle Surgery | DX: L60.0 Ingrowing nail (principal); L60.3 Nail dystrophy | CPT/HCPCS: 99213 ==

== ENCOUNTER → 2023-01-21 09:41 | Outpatient (BNVA) | payer MEDICARE, SELFPAY | PROVIDERS: PCP Clinical Nurse Specialist Adult Health; Referring Provider Clinical Nurse Specialist Adult Health; Visit Provider Nurse Practitioner Family | DX: L30.8 Other specified dermatitis (principal); L56.0 Drug phototoxic response; L57.0 Actinic keratosis; L81.4 Other melanin hyperpigmentation; L85.3 Xerosis cutis; L57.8 Other skin changes due to chronic exposure to nonionizing radiation; D22.5 Melanocytic nevi of trunk | CPT/HCPCS: 17004; 99204 ==

== ENCOUNTER → 2023-01-27 08:10 | Outpatient (BNVA) | payer MEDICARE, SELFPAY | PROVIDERS: PCP Clinical Nurse Specialist Adult Health; Visit Provider Surgery | DX: Z12.11 Encounter for screening for malignant neoplasm of colon (principal) | CPT/HCPCS: 99024; 99204 ==

== ENCOUNTER → 2023-02-13 10:23 | Outpatient (BNVA) | payer MEDICARE, SELFPAY | PROVIDERS: PCP Clinical Nurse Specialist Adult Health; Visit Provider Internal Medicine Pulmonary Disease | DX: J84.112 Idiopathic pulmonary fibrosis (principal); Z99.81 Dependence on supplemental oxygen; G47.33 Obstructive sleep apnea (adult) (pediatric); Z12.2 Encounter for screening for malignant neoplasm of respiratory organs; Z87.891 Personal history of nicotine dependence; J44.9 Chronic obstructive pulmonary disease, unspecified | CPT/HCPCS: 99214 ==

== ENCOUNTER 2023-02-18 12:28 | Outpatient (CLI) | payer MEDICARE, SELFPAY ==
[2023-02-18 12:44] VITALS: PULSE 63; RESP 18; O2SAT 98
[2023-02-18] MEDS: albuterol 2.5 mg/3 mL Neb INHALATION (12:44)
[2023-02-18 12:49] VITALS: PULSE 68
== END 2023-02-18 12:29 | disposition home or self-care (01) ==
PROVIDERS: PCP Clinical Nurse Specialist Adult Health; Visit Provider Internal Medicine Pulmonary Disease
DX: J84.112 Idiopathic pulmonary fibrosis (principal); R94.2 Abnormal results of pulmonary function studies
CPT/HCPCS: 94060; 94726; 94729; J7613

== ENCOUNTER → 2023-02-24 08:08 | Outpatient (BNVA) | payer MEDICARE, SELFPAY | PROVIDERS: PCP Clinical Nurse Specialist Adult Health; Visit Provider Internal Medicine Pulmonary Disease | DX: R06.09 Other forms of dyspnea (principal); Z99.81 Dependence on supplemental oxygen; G47.33 Obstructive sleep apnea (adult) (pediatric); J84.112 Idiopathic pulmonary fibrosis; J44.9 Chronic obstructive pulmonary disease, unspecified; Z87.891 Personal history of nicotine dependence; Z99.89 Dependence on other enabling machines and devices; Z12.2 Encounter for screening for malignant neoplasm of respiratory organs | CPT/HCPCS: 99214 ==

== ENCOUNTER 2023-03-21 07:48 | Day surgery (SDC) | payer MEDICARE, SELFPAY ==
[2023-03-21 08:14] VITALS: BP 129/88; PULSE 67; RESP 18; TEMP 36.3; O2SAT 95
[2023-03-21 08:15] VITALS: BMI 27.0
[2023-03-21] MEDS: sodium chloride 0.9% 1,000 ML 30 ML IV (08:23)
--- NOTE | 2023-03-21 08:32 | W.PM.OPSFHP ---
Same Day Surgery H&P Indication for Procedure/HPI DATE OF PROCEDURE: March 21, 2023 CHIEF COMPLAINT/INDICATIONFOR SURGICAL PROCEDURE: need for screening colonoscopy PREOP DIAGNOSIS: encounter for screening colonoscopy PLANNED PROCEDURE: Operation Date: 03/21/23 09:15 Proposed Procedures p Colonoscopy 29840,Z12.11(Not Applicable) - Wilfredo Ramsey MD Medications/Allergies* Allergies/Adverse Reactions Allergy/AdvReac Type Severity Reaction Status Date / Time No Known Allergies Allergy Verified 02/24/23 08:35 Current Medications: Generic Name Dose Route Start Last Admin Trade Name Freq PRN Reason Stop Dose Admin Sodium Chloride 1,000 mls @ 30 mls/hr 03/21/23 08:00 03/21/23 08:23 Sodium Chloride 0.9% IV 30 mls/hr .Q24H MALIA Administration Pertinent History/Comorbid Conditions* Medical History (Updated 01/01/23 @ 08:15 by Jarrod Westbrook NP) Chronic hypoxemic respiratory failure Fibromyalgia GERD (gastroesophageal reflux disease) Gout 01/2022 uric acid 7.7 Hyperlipidemia Idiopathic pulmonary fibrosis pft 03/2022 mild restriction MIHIR (obstructive sleep apnea) Smoker former smoker, quit 2021 2 PPD X 45 years Torn rotator cuff Surgical History (Updated 08/29/22 @ 18:58 by Jarrod Westbrook NP) H/O neck surgery H/O shoulder surgery Social History Smoking and tobacco/nicotine status: former use of tobacco/nicotine Quit status (tobacco/nicotine): has quit using Year quit tobacco: 2021 Former quit date comment: 2 ppd X 45 years Pertinent Exam Findings alert, oriented x 3, clear to auscultation bilaterally and regular rate & rhythm Recommendations Surgery/Procedure today Coding Level of Care Code Acute Code for Chg Fwd Diagnoses
--- NOTE | 2023-03-21 08:54 | ANES.PREANE2 ---
Pre-Anesthetic Assessment Height/Weight: Height 2.11 m Weight 120.202 kg Temp Pulse Resp BP Pulse Ox O2 Del Method 97.3 F L 67 18 129/88 95 Room Air 03/21/23 08:14 03/21/23 08:14 03/21/23 08:14 03/21/23 08:14 03/21/23 08:14 03/21/23 08:14 Preop Diagnosis: encounter for screening colonoscopy Operation Date: 03/21/23 09:15 Proposed Procedures p Colonoscopy 54940,Z12.11(Not Applicable) - Wilfredo Ramsey MD Familial anesthetic complications: None Was Beta Fermín taken within 24 hours: N/A Was Clonidine taken within 24 hours: N/A Last intake: Intake Last Liquid Date 03/20/23 Last Liquid Time 22:00 Last Solid Date 03/19/23 Last Solid Time 17:00 Social Tobacco and No alcohol Exam alert, oriented x 3, clear to auscultation bilaterally and regular rate & rhythm Airway Mallampati: Class II Dentition: false Pulmonary Sleep Apnea pulmonary fibrosis - double lung transplant candidate supplemental O2 CV/HEM Hypertension Metabolic Hyperlipidemia [facility] Fibromyalgia Anesthetic Plan ASA status: 4 Anesthesia: MAC Risk of > 500 ml blood loss (7ml/kg in children): No Medications/Allergies Home Medications Medication Instructions Recorded Confirmed Last Taken Type Custom Molded Orthotics #1 ea 12/19/20 03/19/23 Unknown Rx Custom orthotics #1 ea 06/06/21 03/19/23 Unknown Rx night splint #1 ea 09/18/21 03/19/23 Unknown Rx sport carbon fibert orthotic #1 ea 09/18/21 03/19/23 Unknown Rx omeprazole 40 mg capsule,delayed See Rx Instructions .Route 05/28/22 03/21/23 03/20/23 Rx release .COMPLEX #90 caps albuterol sulfate 90 mcg/actuation 2 puff inhalation Q6H PRN 07/16/22 03/19/23 Unknown Rx aerosol inhaler shortness of breath or wheezing #8.5 grams trazodone 50 mg tablet 50 mg PO DAILY #90 tabs 07/25/22 03/19/23 03/19/23 Rx pirfenidone 267 mg tablet See Rx Instructions .Route 08/05/22 03/21/23 03/20/23 Rx .COMPLEX #207 tabs lovastatin 20 mg tablet 20 mg PO BID #180 tabs 08/23/22 03/21/23 03/20/23 Rx Inogen #1 ea 10/02/22 03/19/23 Unknown Rx silver sulfadiazine 1 % topical 1 applic topical BID 2 weeks #50 10/03/22 03/19/23 Unknown Rx cream grams mupirocin 2 % topical ointment 1 applic topical TID #15 grams 11/04/22 03/21/23 03/20/23 Rx betamethasone valerate 0.1 % 1 applic topical DAILY PRN skin 12/04/22 03/19/23 03/18/23 Rx topical cream irritation #45 grams chlorthalidone 25 mg tablet 25 mg PO DAILY #90 tabs 01/01/23 03/21/23 03/20/23 Rx dextromethorphan-guaifenesin 5 10 ml PO Q8H PRN cough #118 mL 02/13/23 03/19/23 Unknown Rx mg-100 mg/5 mL oral liquid (Robitussin Cough-Chest Congestion DM) tiotropium 2.5 mcg-olodaterol 2.5 2 puff inhalation DAILY #4 grams 02/24/23 03/21/23 03/21/23 Rx mcg/actuation mist for inhalation (Stiolto Respimat) tramadol 50 mg tablet 50 mg PO TID PRN pain 30 days #90 02/28/23 03/19/23 03/19/23 Rx tabs Allergies Allergy/AdvReac Type Severity Reaction Status Date / Time No Known Allergies Allergy Verified 02/24/23 08:35 Current Medications Generic Name Dose Route Start Last Admin Trade Name Freq PRN Reason Stop Dose Admin Sodium Chloride 1,000 mls @ 30 mls/hr 03/21/23 08:00 03/21/23 08:23 Sodium Chloride 0.9% IV 30 mls/hr .Q24H MALIA Administration PFSH Anesthesia Medical History Chronic hypoxemic respiratory failure Fibromyalgia GERD (gastroesophageal reflux disease) Gout 01/2022 uric acid 7.7 Hyperlipidemia Idiopathic pulmonary fibrosis pft 03/2022 mild restriction MIHIR (obstructive sleep apnea) Smoker former smoker, quit 2021 2 PPD X 45 years Torn rotator cuff Surgical History H/O neck surgery H/O shoulder surgery Social History Smoking and tobacco/nicotine status: former use of tobacco/nicotine Quit status (tobacco/nicotine): has quit using Year quit tobacco: 2021 Former quit date comment: 2 ppd X 45 years Data Anesthesia Cardiac Studies: Echocardiogram 05/13/22
[2023-03-21 10:04] VITALS: BP 99/61; PULSE 55; RESP 16; TEMP 36.2; O2SAT 93
[2023-03-21 10:14] VITALS: BP 116/69; PULSE 57; RESP 16; O2SAT 92
--- NOTE | 2023-03-21 10:35 | ANE.PACU2 ---
Inpatient post-anesthesia follow up: Airway intact: Yes Vital signs: Temperature 97.1 F Pulse Rate 57 Respiratory Rate 16 Blood Pressure 116/69 Pulse Oximetry 92 Oxygen Delivery Me thod Room Air Oxygen Flow Rate 6 Fraction of Inspir ed Oxygen Hydration adequate: Yes Nausea and vomiting: No Pain level: 1 Mental status: Baseline
== END 2023-03-21 10:35 | disposition home or self-care (01) ==
PROVIDERS: PCP Clinical Nurse Specialist Adult Health; Visit Provider Surgery
PROC: 0DJD8ZZ Inspection of Lower Intestinal Tract, Via Natural or Artificial Opening Endoscopic (ICD-10-PCS; CPT 45378; principal; 2023-03-21 09:15)
DX: Z12.11 Encounter for screening for malignant neoplasm of colon (principal); D12.3 Benign neoplasm of transverse colon; K62.1 Rectal polyp; M79.7 Fibromyalgia; K21.9 Gastro-esophageal reflux disease without esophagitis; E78.5 Hyperlipidemia, unspecified; G47.33 Obstructive sleep apnea (adult) (pediatric); Z87.891 Personal history of nicotine dependence
CPT/HCPCS: 45380; 88305; J2704; J3490; J7030

== ENCOUNTER → 2023-04-07 10:03 | Outpatient (BNVA) | payer MEDICARE, SELFPAY | PROVIDERS: PCP Clinical Nurse Specialist Adult Health; Visit Provider Surgery | DX: Z09 Encounter for follow-up examination after completed treatment for conditions other than malignant neoplasm (principal) | CPT/HCPCS: 99213 ==

== ENCOUNTER → 2023-05-14 16:09 | Outpatient (BNVA) | payer MEDICARE, SELFPAY | PROVIDERS: PCP Clinical Nurse Specialist Adult Health; Visit Provider Internal Medicine Pulmonary Disease | DX: J84.112 Idiopathic pulmonary fibrosis (principal) | CPT/HCPCS: 36415; 80076; 99214 ==

== ENCOUNTER → 2023-06-30 09:49 | Outpatient (BNVA) | payer MEDICARE, SELFPAY | PROVIDERS: PCP Clinical Nurse Specialist Adult Health; Visit Provider Clinical Nurse Specialist Adult Health | DX: I10 Essential (primary) hypertension (principal); R73.01 Impaired fasting glucose; J84.112 Idiopathic pulmonary fibrosis; M79.7 Fibromyalgia; Z79.899 Other long term (current) drug therapy | CPT/HCPCS: 80053; 83036; 84443; 85025 ==

== ENCOUNTER → 2023-08-11 14:42 | Outpatient (BNVA) | payer MEDICARE, SELFPAY | PROVIDERS: PCP Clinical Nurse Specialist Adult Health; Visit Provider Internal Medicine Pulmonary Disease | DX: Z99.81 Dependence on supplemental oxygen (principal); G47.33 Obstructive sleep apnea (adult) (pediatric); J84.112 Idiopathic pulmonary fibrosis; J44.9 Chronic obstructive pulmonary disease, unspecified; Z87.891 Personal history of nicotine dependence | CPT/HCPCS: 99214 ==

== ENCOUNTER 2023-10-18 06:00 | Outpatient (RCR) | payer MEDICARE, SELFPAY ==
[2023-10-20 17:23] LABS: ABG PCO2 36.6 mmHg (35-45); ABG PH Result 7.45 (7.35-7.45)
[2023-10-20 17:24] LABS: Base Excess ABG 1.8 mmol/L (-2.0-2.0); Blood Gas Drawn By WALCI; Blood Gas Operator Identificat WALCI; HCO3 ABG 25.5 mmol/L (22-26); Oxygen Device RA; Oxygen Saturation ABG 95.8; PO2 ABG 78.7 mmHg (80.0-100.0); Potassium Level - ABG 3.4 mmol/L (3.5-5.0)
[2023-10-20 17:25] LABS: Arterial Blood Gas Hematocrit 45.6 % (42-52); Blood Gas Sample Site RR; Blood Gas Sample Type ARTERIAL; Carboxyhemoglobin 0.8 %THgb (0.4-20.1); HGB O2 Sat 94.7 % (95-100); Ionized Calcium Level - ABG 1.2 mmol/L (1.1-1.4); Methemoglobin 0.4 % (0.4-1.5); Total Hemoglobin 14.9 g/dL (14-18)
== END 2023-11-16 23:59 | disposition home or self-care (01) ==
LOC: PULRHB 06:00
PROVIDERS: PCP Clinical Nurse Specialist Adult Health; Visit Provider Internal Medicine Pulmonary Disease
DX: J84.9 Interstitial pulmonary disease, unspecified (principal); R22.43 Localized swelling, mass and lump, lower limb, bilateral
CPT/HCPCS: 36600; 80051; 82330; 82805

== ENCOUNTER → 2023-10-20 14:54 | Outpatient (BNVA) | payer MEDICARE, SELFPAY | PROVIDERS: PCP Clinical Nurse Specialist Adult Health; Visit Provider Internal Medicine Pulmonary Disease | DX: J84.112 Idiopathic pulmonary fibrosis (principal); Z87.891 Personal history of nicotine dependence; Z99.81 Dependence on supplemental oxygen; G47.33 Obstructive sleep apnea (adult) (pediatric) | CPT/HCPCS: 99214 ==

== ENCOUNTER 2023-11-19 14:15 | Outpatient (RCR) | payer SELFPAY | END 2023-12-17 23:59 | disposition home or self-care (01) | LOC: PULRHB 14:15 | PROVIDERS: PCP Clinical Nurse Specialist Adult Health; Visit Provider Internal Medicine Pulmonary Disease | DX: J84.9 Interstitial pulmonary disease, unspecified (principal); R22.43 Localized swelling, mass and lump, lower limb, bilateral ==

== ENCOUNTER 2023-12-03 10:00 | Outpatient (CLI) | payer MEDICARE, SELFPAY ==
--- NOTE | 2023-12-03 10:00 | CT_ITS ---
WS: [id number] LDCT LUNG CANCER SCREENING TECHNIQUE: Noncontrast CT of the chest with coronal and sagittal reformatted images. CLINICAL INFORMATION: Cancer Screen COMPARISON: CT chest abdomen pelvis 08/17/2022 DLP: 125.70 mGy.cm DIvol: Mean CTDIvol: 3.00 (mGy) All CT scans at [facility] use at least one of these dose optimization techniques: automat ed exposure control; mA and/or kV adjustment per patient size (includes targeted exams where dose is matched to clinical indication); or iterative reconstruction. FINDINGS: Peripheral and subpleural interstitial reticular opacities with honeycombing compatible with UIP in the appropriate clinical setting. This is more prominent in the lung bases. Associated traction bronc hiectasis. No suspicious focal pulmonary parenchymal opacities. Chronic RIGHT rib fractures with callus formation. Mild thoracic curve. Moderate thoracic kyphosis. C hronic anterior wedging in the upper thoracic spine. A few Schmorl's nodes in the midthoracic spine. Adrenal glands are normal. Tiny esophageal hiatal hernia. Adrenal glands are normal. No mediastinal or hilar lymphadenopathy. Normal caliber thoracic aorta. CT/CT lung screening [id number] IMPRESSION: LUNG-RADS: 2-Benign Appearance or Behavior FOLLOW UP: 12 Month: Continue annual screening with LDCT
== END 2023-12-03 10:05 | disposition home or self-care (01) ==
PROVIDERS: PCP Nurse Practitioner Family; Visit Provider Internal Medicine Pulmonary Disease
DX: Z12.2 Encounter for screening for malignant neoplasm of respiratory organs (principal); Z87.891 Personal history of nicotine dependence; J84.89 Other specified interstitial pulmonary diseases; J47.9 Bronchiectasis, uncomplicated; S22.41XA Multiple fractures of ribs, right side, initial encounter for closed fracture; M40.204 Unspecified kyphosis, thoracic region; M51.44 Schmorl's nodes, thoracic region
CPT/HCPCS: 71271

== ENCOUNTER 2023-12-31 13:01 | Outpatient (RCR) | payer SELFPAY | END 2024-01-17 23:59 | disposition home or self-care (01) | LOC: PULRHB 13:01 | PROVIDERS: PCP Nurse Practitioner Family; Visit Provider Internal Medicine Pulmonary Disease | DX: J84.9 Interstitial pulmonary disease, unspecified (principal); R22.43 Localized swelling, mass and lump, lower limb, bilateral ==

== ENCOUNTER 2024-01-19 08:28 | Outpatient (RCR) | payer SELFPAY | END 2024-02-16 23:59 | disposition home or self-care (01) | LOC: PULRHB 08:28 | PROVIDERS: PCP Nurse Practitioner Family; Visit Provider Internal Medicine Pulmonary Disease | DX: J84.9 Interstitial pulmonary disease, unspecified (principal); R22.43 Localized swelling, mass and lump, lower limb, bilateral ==

== ENCOUNTER 2024-03-19 14:15 | Outpatient (RCR) | payer SELFPAY | END 2024-04-17 23:59 | disposition home or self-care (01) | LOC: PULRHB 14:15 | PROVIDERS: PCP Nurse Practitioner Family; Visit Provider Internal Medicine Pulmonary Disease | DX: J84.9 Interstitial pulmonary disease, unspecified (principal); R22.43 Localized swelling, mass and lump, lower limb, bilateral ==

== ENCOUNTER 2024-05-25 10:33 | Outpatient (CLI) | payer MEDICARE, SELFPAY ==
--- NOTE | 2024-05-25 10:40 | XRR_ITS ---
PROCEDURE INFORMATION: Exam: XR Chest Exam date and time: 05/25/2024 10:44 AM Age: 58 years old Clinical indication: Chest wall pain; Prior surgery; Surgery date: 6+ months; Surgery type: Lung biopsy both lungs; Patient HX: HX of pulmonary fibrosis; Patient states popped rib a week ago, check before double lung transplant ; Additional info: Right side chest pain TECHNIQUE: Imaging protocol: Radiologic exam of the chest. Views: 2 views. COMPARISON: CT lung screening [id number] 12/03/2023 10:08 AM FINDINGS: Lungs: There are chronic appearing interstitial lung changes bilaterally. Findings are similar to that seen on prior chest x-ray. No definite acute superimposed consolidation is identified. Pleural spaces: Unremarkable. No pleural effusion. No pneumothorax. Heart/Mediastinum: The heart is slightly enlarged. There is calcified plaque involving the aorta. Bones/joints: There are postoperative changes involving the cervical spine and right humeral head. XR/XR chest 2V* [id number] IMPRESSION: 1. Chronic appearing interstitial lung disease.
== END 2024-05-25 10:34 | disposition home or self-care (01) ==
LOC: RAD 10:35
PROVIDERS: PCP Nurse Practitioner Family; Visit Provider Nurse Practitioner Adult Health
DX: J84.10 Pulmonary fibrosis, unspecified (principal); R07.89 Other chest pain; Z98.890 Other specified postprocedural states
CPT/HCPCS: 71046

== ENCOUNTER 2024-05-27 10:45 | Outpatient (RCR) | payer SELFPAY | END 2024-06-18 23:59 | disposition home or self-care (01) | LOC: PULRHB 10:45 | PROVIDERS: PCP Nurse Practitioner Family; Visit Provider Internal Medicine Pulmonary Disease | DX: J84.9 Interstitial pulmonary disease, unspecified (principal); R22.43 Localized swelling, mass and lump, lower limb, bilateral ==

== ENCOUNTER → 2024-06-07 08:11 | Outpatient (BNVA) | payer MEDICARE, SELFPAY | PROVIDERS: PCP Nurse Practitioner Family; Visit Provider Podiatrist Foot & Ankle Surgery | DX: L60.3 Nail dystrophy (principal) | CPT/HCPCS: 99213 ==

== ENCOUNTER 2024-06-21 15:49 | Outpatient (RCR) | payer SELFPAY | END 2024-07-16 23:59 | disposition home or self-care (01) | LOC: PULRHB 15:49 | PROVIDERS: PCP Nurse Practitioner Family; Visit Provider Internal Medicine Pulmonary Disease | DX: J84.9 Interstitial pulmonary disease, unspecified (principal); R22.43 Localized swelling, mass and lump, lower limb, bilateral ==

== ENCOUNTER → 2024-07-01 08:59 | Outpatient (BNVA) | payer MEDICARE, SELFPAY | PROVIDERS: PCP Nurse Practitioner Family; Visit Provider Podiatrist Foot & Ankle Surgery | DX: L60.3 Nail dystrophy (principal); B35.1 Tinea unguium | CPT/HCPCS: 11750; 99213; J9999 ==

== ENCOUNTER → 2024-07-15 09:48 | Outpatient (BNVA) | payer MEDICARE, SELFPAY | PROVIDERS: PCP Nurse Practitioner Family; Visit Provider Podiatrist Foot & Ankle Surgery | DX: L60.3 Nail dystrophy (principal); B35.1 Tinea unguium | CPT/HCPCS: 99213 ==

== ENCOUNTER 2024-07-17 12:54 | Outpatient (RCR) | payer SELFPAY | END 2024-08-16 23:59 | disposition home or self-care (01) | LOC: PULRHB 12:54 | PROVIDERS: PCP Nurse Practitioner Family; Visit Provider Internal Medicine Pulmonary Disease | DX: J84.9 Interstitial pulmonary disease, unspecified (principal); R22.43 Localized swelling, mass and lump, lower limb, bilateral ==

== ENCOUNTER 2024-08-17 07:46 | Outpatient (RCR) | payer MEDICARE, SELFPAY | END 2024-09-15 23:59 | disposition home or self-care (01) | LOC: PULRHB 07:46 | PROVIDERS: PCP Nurse Practitioner Family; Visit Provider Internal Medicine Pulmonary Disease | DX: J84.9 Interstitial pulmonary disease, unspecified (principal); R22.43 Localized swelling, mass and lump, lower limb, bilateral | CPT/HCPCS: 93798 ==

== ENCOUNTER 2024-12-17 13:24 | Outpatient (RCR) | payer SELFPAY | END 2025-01-16 23:59 | disposition home or self-care (01) | LOC: PULRHB 13:24 | PROVIDERS: PCP Nurse Practitioner Family; Visit Provider Internal Medicine Pulmonary Disease | DX: J84.9 Interstitial pulmonary disease, unspecified (principal); R22.43 Localized swelling, mass and lump, lower limb, bilateral ==

== ENCOUNTER 2025-01-18 13:39 | Outpatient (RCR) | payer SELFPAY | END 2025-02-15 23:59 | disposition home or self-care (01) | LOC: PULRHB 13:39 | PROVIDERS: PCP Nurse Practitioner Family; Visit Provider Internal Medicine Pulmonary Disease | DX: J84.9 Interstitial pulmonary disease, unspecified (principal); R22.43 Localized swelling, mass and lump, lower limb, bilateral ==

== ENCOUNTER → 2025-01-27 08:07 | Outpatient (BNVA) | payer MEDICARE, SELFPAY | PROVIDERS: PCP Nurse Practitioner Family; Visit Provider Dermatology | DX: L50.8 Other urticaria (principal) | CPT/HCPCS: 17000; 99213 ==

== ENCOUNTER → 2025-02-08 13:21 | Outpatient (BNVA) | payer MEDICARE, SELFPAY | PROVIDERS: PCP Nurse Practitioner Family; Visit Provider Dermatology | DX: L30.4 Erythema intertrigo (principal) | CPT/HCPCS: 99213 ==

== ENCOUNTER 2025-02-16 10:31 | Outpatient (RCR) | payer SELFPAY | END 2025-03-18 23:59 | disposition home or self-care (01) | LOC: PULRHB 10:31 | PROVIDERS: PCP Nurse Practitioner Family; Visit Provider Internal Medicine Pulmonary Disease | DX: J84.9 Interstitial pulmonary disease, unspecified (principal); R22.43 Localized swelling, mass and lump, lower limb, bilateral ==

== ENCOUNTER 2025-03-19 13:08 | Outpatient (RCR) | payer SELFPAY | END 2025-04-17 23:59 | disposition home or self-care (01) | LOC: PULRHB 13:08 | PROVIDERS: PCP Nurse Practitioner Family; Visit Provider Internal Medicine Pulmonary Disease | DX: J84.9 Interstitial pulmonary disease, unspecified (principal); R22.43 Localized swelling, mass and lump, lower limb, bilateral ==

== ENCOUNTER → 2025-03-23 10:41 | Outpatient (BNVA) | payer MEDICARE, SELFPAY | PROVIDERS: PCP Nurse Practitioner Family; Visit Provider Dermatology | DX: L30.4 Erythema intertrigo (principal); Z94.89 Other transplanted organ and tissue status; D48.5 Neoplasm of uncertain behavior of skin | CPT/HCPCS: 11102; 99213 ==

== ENCOUNTER 2025-04-18 12:11 | Outpatient (RCR) | payer SELFPAY | END 2025-05-18 23:59 | disposition home or self-care (01) | LOC: PULRHB 12:11 | PROVIDERS: PCP Nurse Practitioner Family; Visit Provider Internal Medicine Pulmonary Disease | DX: J84.9 Interstitial pulmonary disease, unspecified (principal); R22.43 Localized swelling, mass and lump, lower limb, bilateral ==